=== PATIENT | female | born 1995 | race African-American/Black ===

== ENCOUNTER 2016-09-10 17:38 | Outpatient (CLI) | payer BC ==
[2016-09-10 19:15] LABS: ALT (SGPT) 20 U/L (0-55); AST (SGOT) 18 U/L (5-34); Alkaline Phosphatase 80 U/L (40-150); Anion Gap 13 mmol/L (10-20); BUN (Urea Nitrogen) 8 mg/dL (7.0-18.7); Bilirubin, Total 0.6 mg/dL (0.2-1.2); Calc. Creatinine Clearance 0 mL/min (70-130); Calcium 8.9 mg/dL (7.8-10.44); Carbon Dioxide 25 mmol/L (22-29); Chloride 108 mmol/L (98-107); Estimated GFR-MDRD Greater than 90; Globulin 2.8 g/dL (2.4-3.5); Protein, Total 6.9 g/dL (6.0-8.3)
[2016-09-10 19:34] LABS: Free T3 4.79 pg/mL (1.71-3.71)
[2016-09-10 19:39] LABS: #Basophils 0.1 thou/uL (0.0-0.2); #Eosinphils 0.3 thou/uL (0.0-0.7); #Lymphocytes 2.2 thou/uL (1.20-3.40); #Monocytes 0.4 thou/uL (0.11-0.59); #Neutrophils 2.9 thou/uL (1.40-6.50); %Basophils 0.9 % (0.0-1.0); %Eosinophils 4.4 % (0.0-10.0); %Lymphocytes 37.8 % (21.0-51.0); %Monocytes 6.8 % (0.0-10.0); Hematocrit 38.5 % (36.0-47.0); Mean Platelet Volume 6.1 fL (7.4-10.4); Red Blood Cell (RBC) Count 4.69 mill/uL (4.20-5.40); White Blood Cell (WBC) Count 5.7 thou/uL (4.8-10.8)
== END 2016-09-10 17:39 | disposition home or self-care (01) ==
LOC: NAV SJFMSP 17:38
PROVIDERS: ATTEND Family Medicine
DX: K52.9 Noninfective gastroenteritis and colitis, unspecified (principal); R94.6 Abnormal results of thyroid function studies
CPT/HCPCS: 80053; 84439; 84443; 84481; 84702; 85025

== ENCOUNTER 2017-03-19 13:15 | Emergency (ER) | payer BC ==
[2017-03-19 13:43] LABS: Blood, Urine Negative (Negative); Clarity Cloudy (Clear); Glucose, Urine (Dipstick) Negative (Negative); Leukocyte Moderate (Negative); Nitrite Negative (Negative); Protein, Urine (Dipstick) 30 mg/dL (Neg-Trace); pH, Urine 5.5 (5.0-9.0)
[2017-03-19 13:45] LABS: Pregnancy Test - Urine (BHCG) POSITIVE (NEGATIVE); Pregu Control Background? CLEAR/WHITE (CLR/WHITE); Pregu Control Bar Appear? YES (CONTROL BAR); Specific Gravity 1.034 (1.002-1.036); Specific Gravity, Urine 1.034 (1.002-1.036)
[2017-03-19 13:46] LABS: Bilirubin Negative (Negative); Icto Negative (Negative)
[2017-03-19 13:49] LABS: Bacteria/HPF 3+ HPF (None Seen); Crystals/HPF 2+ CA OXALATE HPF (Negative); RBC/HPF 0-3 HPF (0-3)
[2017-03-19] MEDS ORDERED: Sodium Chloride 0.9% 1,000 ML ONE (13:58)
[2017-03-19 14:14] LABS: #Eosinphils 0.2 thou/uL (0.0-0.7); #Lymphocytes 1.6 thou/uL (1.20-3.40); #Monocytes 0.4 thou/uL (0.11-0.59); #Neutrophils 6.3 thou/uL (1.40-6.50); %Basophils 0.5 % (0.0-1.0); %Eosinophils 2.9 % (0.0-10.0); %Lymphocytes 18.9 % (21.0-51.0); %Monocytes 4.7 % (0.0-10.0); %Neutrophils 72.9 % (42.0-75.0); Hemoglobin 12.5 g/dL (12.0-16.0); Mean Corpuscular Hemoglobin 26.9 pg (27.0-31.0); Mean Corpuscular Volume 84.2 fl (81.0-99.0); Mean Platelet Volume 7.6 fL (7.4-10.4); Platelet Count 230 thou/uL (130-400); RBC Distribution Width 15.4 % (11.5-14.5); Red Blood Cell (RBC) Count 4.65 mill/uL (4.20-5.40); White Blood Cell (WBC) Count 8.6 thou/uL (4.8-10.8)
[2017-03-19 14:24] LABS: ALT (SGPT) 10 U/L (8-55); AST (SGOT) 15 U/L (5-34); Albumin 3.5 g/dL (3.5-5.0); Alkaline Phosphatase 91 U/L (40-150); Anion Gap 13 mmol/L (10-20); BUN (Urea Nitrogen) 6 mg/dL (7.0-18.7); Bilirubin, Total 0.5 mg/dL (0.2-1.2); Calc. Creatinine Clearance 0 mL/min (70-130); Calcium 8.8 mg/dL (7.8-10.44); Carbon Dioxide 19 mmol/L (22-29); Chloride 108 mmol/L (98-107); Estimated GFR-MDRD Greater than 90; Globulin 3.3 g/dL (2.4-3.5); Glucose 115 mg/dL (70-105); Potassium 3.7 mmol/L (3.5-5.1); Protein, Total 6.8 g/dL (6.0-8.3); Sodium 136 mmol/L (136-145)
== END 2017-03-19 15:30 | disposition home or self-care (01) ==
LOC: NAV ERS 13:15
DX: N39.0 Urinary tract infection, site not specified (principal); J45.909 Unspecified asthma, uncomplicated; E05.90 Thyrotoxicosis, unspecified without thyrotoxic crisis or storm; Z79.899 Other long term (current) drug therapy
CPT/HCPCS: 36415; 80053; 81003; 81015; 81025; 84443; 85025; 93005; 96360; J7050

== ENCOUNTER 2017-07-30 16:39 | Emergency (ER) | payer BC, OTHER | END 2017-07-30 17:10 | disposition home or self-care (01) | LOC: NAV ERS 16:39 | DX: O99.89 Other specified diseases and conditions complicating pregnancy, childbirth and the puerperium (principal); R10.9 Unspecified abdominal pain; O99.513 Diseases of the respiratory system complicating pregnancy, third trimester; J45.909 Unspecified asthma, uncomplicated; O99.283 Endocrine, nutritional and metabolic diseases complicating pregnancy, third trimester; E03.9 Hypothyroidism, unspecified; Z3A.32 32 weeks gestation of pregnancy | CPT/HCPCS: 99283 ==

== ENCOUNTER 2017-11-21 16:15 | Emergency (ER) | payer BC, OTHER ==
[2017-11-21] MEDS ORDERED: Proparacaine 0.5% Opth 15 ML BOT ONE (16:43)
[2017-11-21] MEDS ORDERED: Fluorescein Opthalmic Strip ONE (16:44)
--- NOTE | 2017-11-21 18:44 | RAD ---
LEFT HIP TWO VIEWS: 11/21/2017 HISTORY: Left hip replacement. Pain. COMPARISON: None available. 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 There is mild heterotopic bone superior to th e greater trochanter. Linear areas of circumscribed lucency are seen involving the proximal left fem ur, suggesting previously removed hardware. There is no radiopaque foreign body, subcutaneous gas, a cute fracture, or evidence of hardware failure. There is heterotopic bone along the lateral margin o f the acetabular roof. IMPRESSION: Postoperative changes, as described above. No displaced fracture or dislocation seen. POS: [facility]
== END 2017-11-21 17:25 | disposition home or self-care (01) ==
LOC: NAV ERS 16:15
DX: M25.552 Pain in left hip (principal); M79.605 Pain in left leg; J45.909 Unspecified asthma, uncomplicated; E03.9 Hypothyroidism, unspecified

== ENCOUNTER 2018-02-10 20:42 | Emergency (ER) | payer BC, OTHER, SELFPAY ==
[2018-02-10] MEDS ORDERED: Acetaminophen 500 MG TAB ONE (20:58)
--- NOTE | 2018-02-10 21:20 | RAD ---
THREE VIEWS OF THE LEFT RING FINGER 02/10/18 INDICATION: Left finger injury after having finger caught between a crate and a dumpster. COMPARISON: None. FINDINGS: No acute fracture or subluxation is present. No radiopaque foreign body is noted. IMPRESSION: No acute osseous abnormality. POS: [facility]
== END 2018-02-10 22:00 | disposition home or self-care (01) ==
LOC: NAV ERS 20:42
DX: S67.195A Crushing injury of left ring finger, initial encounter (principal); E03.9 Hypothyroidism, unspecified; J45.909 Unspecified asthma, uncomplicated; Z79.899 Other long term (current) drug therapy; W23.0XXA Caught, crushed, jammed, or pinched between moving objects, initial encounter
CPT/HCPCS: 90471

== ENCOUNTER 2018-02-22 16:53 | Emergency (ER) | payer SELFPAY ==
[2018-02-22 17:16] LABS: Pregnancy Test - Urine (BHCG) Negative (Negative); Pregu Control Background? CLEAR/WHITE (CLR/WHITE); Pregu Control Bar Appear? YES (CONTROL BAR); Specific Gravity 1.003 (1.002-1.036)
[2018-02-22] MEDS ORDERED: Lidocaine 1% 20 ML MDV ONE (17:38)
[2018-02-22] MEDS ORDERED: cefTRIAXone\\ROCEPHIN 500 MG VIAL ONE (17:38)
[2018-02-22] MEDS ORDERED: Azithromycin 250 MG TAB ONE (17:38)
[2018-02-22] MEDS ORDERED: Ondansetron ODT 4 MG TAB ONE (17:38)
[2018-02-22 17:42] LABS: Wet Prep Clue Cells Clue Cells PRESENT (None Seen); Wet Prep Trichomonas Trichomonas Absent (None Seen)
[2018-02-24 23:15] LABS: Chlamydia by PCR Inconclusive (NotDetected); GC by PCR Inconclusive (NotDetected)
== END 2018-02-22 18:35 | disposition home or self-care (01) ==
LOC: NAV ERS 16:53
DX: N76.0 Acute vaginitis (principal); B96.89 Other specified bacterial agents as the cause of diseases classified elsewhere; Z20.2 Contact with and (suspected) exposure to infections with a predominantly sexual mode of transmission; J45.909 Unspecified asthma, uncomplicated; E03.9 Hypothyroidism, unspecified; Z79.899 Other long term (current) drug therapy
CPT/HCPCS: 81025; 87210; 87491; 87591; 96372; J0696; J2001; Q0162

== ENCOUNTER 2018-09-16 15:18 | Emergency (ER) | payer BC, MEDICAID ==
[2018-09-16] MEDS ORDERED: Sodium Chloride 0.9% 1,000 ML ONE (16:58)
== END 2018-09-16 18:52 | disposition home or self-care (01) ==
LOC: NAV ERS 15:18
DX: O99.512 Diseases of the respiratory system complicating pregnancy, second trimester (principal); J45.901 Unspecified asthma with (acute) exacerbation; J06.9 Acute upper respiratory infection, unspecified; O99.282 Endocrine, nutritional and metabolic diseases complicating pregnancy, second trimester; E86.9 Volume depletion, unspecified; E03.9 Hypothyroidism, unspecified; Z79.899 Other long term (current) drug therapy; Z3A.22 22 weeks gestation of pregnancy
CPT/HCPCS: 87804; 94640; 96360; J7050; J7620

== ENCOUNTER 2018-12-01 16:22 | Emergency (ER) | payer BC, OTHER ==
--- NOTE | 2018-12-01 17:04 | RAD ---
Exam:Left knee 4 views HISTORY: Joint pain COMPARISON: None FINDINGS: Joint spaces are preserved. No fracture. No malalignment. No joint effusion. IMPRESSION: Unremarkable left knee radiographs
== END 2018-12-01 17:32 | disposition home or self-care (01) ==
LOC: NAV ERS 16:22
DX: S83.412A Sprain of medial collateral ligament of left knee, initial encounter (principal); E03.9 Hypothyroidism, unspecified; J45.909 Unspecified asthma, uncomplicated; Z79.51 Long term (current) use of inhaled steroids; X58.XXXA Exposure to other specified factors, initial encounter

== ENCOUNTER 2020-02-11 19:28 | Emergency (ER) | payer BC | END 2020-02-11 20:10 | disposition home or self-care (01) | LOC: NAV ERS 19:28 | DX: G44.209 Tension-type headache, unspecified, not intractable (principal); E03.9 Hypothyroidism, unspecified; Z79.899 Other long term (current) drug therapy | CPT/HCPCS: 99283 ==